=== PATIENT | female | born 1945 | race Caucasian/White ===

== ENCOUNTER 2022-06-18 16:38 | Emergency (ER) | payer MEDICARE, OTHER, SELFPAY ==
[2022-06-18 16:49] VITALS: BMI 36.0
--- NOTE | 2022-06-18 16:55 | XRR_ITS ---
PROCEDURE INFORMATION: Exam: XR Right Shoulder Exam date and time: 06/18/2022 5:10 PM Age: 76 years old Clinical indication: Pain; Shoulder; Right; Additional info: Fall today TECHNIQUE: Imaging protocol: Radiologic exam of the right shoulder. Views: 2 or more views. COMPARISON: No relevant prior studies available. FINDINGS: Bones/joints: Mildly complex or comminuted fracture seen involving the humeral head-neck of the right shoulder, with component of impaction. Mild deformity at the fracture site without significant displacement or angulation. No dislocation is seen in the shoulder joint. Adjacent osseous structures show no significant abnormality. Acromioclavicular joint appears maintained. Soft tissues: Unremarkable. XR/XR shoulder RT min 2V* [id number] IMPRESSION: Fracture of the humeral head-neck of the right shoulder, as noted above.
--- NOTE | 2022-06-18 17:24 | W.ED.EXTPRO ---
HPI - Extremity Problem General: Chief complaint: Extremity Injury, Upper Stated complaint: abd pain Time Seen by Provider: 06/18/22 17:24 History of Present Illness: 76-year-old female comes in today for complaints of injury to the right upper arm. Patient reports that she was cleaning her windows, bent over and was washing the lower part of the window and when she stood up straight she became dizzy and fell to the right side catching herself. Patient reports pain to the right upper arm. Patient is in a sling. Patient was brought in by EMS and had been given fentanyl in route. Patient is alert and oriented x3. Patient denies any other complaints. Patient appears nontoxic. Patient appears in no pain at rest. Associated symptoms: Deny chest pain or fever(s) Review of Systems Const: Denies: fever(s) Card: Denies: chest pain Resp: Denies: dyspnea GI: Denies: abdominal pain : Denies: difficulty voiding Musc: Reports: extremity pain Skin/Breast: Denies: new lesions Neuro: Denies: headache(s) Physical Exam Const: COMMON NORMALS: patient oriented x3 and alert HENMT: COMMON NORMALS: atraumatic HEAD & SCALP: atraumatic MOUTH: Normal oral and palatal mucosa present Neck/C-Spine: COMMON NORMALS: full ROM CERVICAL SPINE: No Cervical spine tenderness Chest: COMMONS NORMALS: normal palpation of entire chest wall Resp: COMMON NORMALS: normal respiratory effort and clear to auscultation bilaterally AUSCULTATION: clear to auscultation bilaterally Cardio: COMMON NORMALS: regular rate and regular rhythm RATE: regular rate RHYTHM: regular rhythm GI: COMMON NORMALS: Soft to palpation and non-tender PALPATION: Yes Soft to palpation Back/Pelvis: THORACIC SPINE/UPPER BACK: No thoracic spinal tenderness LUMBAR SPINE/LOWER BACK: No lumbar spinal tenderness Extremity: RIGHT UPPER EXTREMITY: Yes upper arm (Right upper arm tenderness with mild swelling. +Distal pulses and sensation) Neuro: COMMON NORMALS: patient oriented x3 SENSORIUM/ORIENTATION: Yes alert Skin: COMMON NORMALS: turgor normal GENERAL SKIN EXAM: turgor normal MDM - Extremity (Nontraumatic) Medical Decision Making 76-year-old female comes in today for complaints of injury to the right upper arm. Patient had stood up from being bent over cleaning her windows and lost her balance causing her to fall onto her right side. On exam patient has tenderness to the proximal right upper arm. Patient is in a sling. No rib pain or abdominal pain is noted. No pain is noted along the cervical, thoracic, and lumbar spine. Patient moves all extremities well except for the right arm. Distal pulses and sensation are intact to the right arm. Differential diagnosis includes dislocation, fracture, contusion. X-ray notes a proximal humeral fracture. Patient was put in a shoulder immobilizer and will be referred to orthopedic surgeon for further evaluation and treatment. Patient reported understanding and agreed to plan. Case management was requested to assist with follow-up appointment. Patient was written for as 12 tablets of hydrocodone for severe pain. Lab Data Radiology Impressions Shoulder X-Ray 06/18/22 16:55 IMPRESSION: Fracture of the humeral head-neck of the right shoulder, as noted above. Discharge Plan Discharge Patient Disposition: Home Clinical Impression: Fracture of humerus Qualifiers: Encounter type: initial encounter Humerus Location: proximal Fracture type: closed Fracture alignment: displaced Laterality: right Condition: Stable Prescriptions: New hydrocodone-acetaminophen 5-325 mg tablet 1 tab PO Q6H PRN (Reason: pain (scale score 7-10)) Qty: 12 0RF Discharge Orders: Discharge ED (Routine); Ordered 06/18/22 Ordered By: Aniket Sterling Referrals: Chaz Nolen, [Primary Care Provider] - Discharge Diet: Usual diet Discharge Activity: Increase activity as tolerated Patient Instructions: Arm Fracture in Adults (DC), Opioid Safety Activity Restrictions/Additional Instructions: Home and rest. Splint arm for comfort. Ice or heat for further pain control. Case management will contact you for follow-up with orthopedic surgeon. Follow-up with primary care as needed. Return to ER for new concerns or worsening symptoms such as uncontrolled pain, and high fever. Coding Level of Care Code ED Manager Of [employer] for Karli Ferreira
[2022-06-18] MEDS: HYDROcodone-acetaminophen 5-325 mg Tablet 2 TAB PO (17:56)
--- NOTE | 2022-06-19 08:51 | DCPLANNER ---
Addendum entered by Marlen Cardoso 06/26/22 07:51: Patient had a follow up appointment scheduled with ortho - patient did attend appointment. Original Note: manager revenue had message to schedule a follow up appointment for patient with ortho. manager revenue sent patients information to the front office staff at ortho. Patients information will be printed and reviewed. clinic will call patient with appointment information.
== END 2022-06-18 18:09 | disposition home or self-care (01) ==
PROVIDERS: Emergency Provider Nurse Practitioner Family; PCP Electrodiagnostic Medicine
DX: M79.621 Pain in right upper arm (principal); S42.291A Other displaced fracture of upper end of right humerus, initial encounter for closed fracture; W18.49XA Other slipping, tripping and stumbling without falling, initial encounter
CPT/HCPCS: 29240; 73030; 99283

== ENCOUNTER → 2022-06-25 10:34 | Outpatient (BNVA) | payer MEDICARE, OTHER, SELFPAY | PROVIDERS: PCP Electrodiagnostic Medicine; Visit Provider Orthopaedic Surgery | DX: S42.201A Unspecified fracture of upper end of right humerus, initial encounter for closed fracture (principal); W19.XXXA Unspecified fall, initial encounter | CPT/HCPCS: 23600; 73030 ==

== ENCOUNTER → 2022-07-23 10:42 | Outpatient (BNVA) | payer MEDICARE, OTHER, SELFPAY | PROVIDERS: PCP Electrodiagnostic Medicine; Visit Provider Orthopaedic Surgery | DX: S42.201A Unspecified fracture of upper end of right humerus, initial encounter for closed fracture (principal); X58.XXXA Exposure to other specified factors, initial encounter | CPT/HCPCS: 73030; 99024 ==

== ENCOUNTER → 2022-08-20 10:11 | Outpatient (BNVA) | payer MEDICARE, OTHER, SELFPAY | PROVIDERS: PCP Electrodiagnostic Medicine; Visit Provider Orthopaedic Surgery | DX: S42.201A Unspecified fracture of upper end of right humerus, initial encounter for closed fracture (principal); X58.XXXA Exposure to other specified factors, initial encounter | CPT/HCPCS: 73030; 99024 ==

== ENCOUNTER → 2022-09-24 10:03 | Outpatient (BNVA) | payer MEDICARE, OTHER, SELFPAY | PROVIDERS: PCP Electrodiagnostic Medicine; Visit Provider Orthopaedic Surgery | DX: S42.294D Other nondisplaced fracture of upper end of right humerus, subsequent encounter for fracture with routine healing (principal); X58.XXXD Exposure to other specified factors, subsequent encounter | CPT/HCPCS: 73030; 99024 ==

== ENCOUNTER 2023-03-23 08:19 | Outpatient (CLI) | payer MEDICARE, OTHER, SELFPAY ==
--- NOTE | 2023-03-23 08:24 | XRR_ITS ---
PROCEDURE INFORMATION: Exam: XR Chest Exam date and time: 03/23/2023 8:27 AM Age: 77 years old Clinical indication: Cough TECHNIQUE: Imaging protocol: Radiologic exam of the chest. Views: 2 views. COMPARISON: CR XR shoulder RT min 2V* [id number] 09/24/2022 10:12 AM FINDINGS: Lungs: Calcific sequela of old granulomatous disease, to include bilateral calcified granulomata. No consolidation. Mild linear atelectasis versus scarring at the left lung base. Pleural spaces: Unremarkable. No pleural effusion. No pneumothorax. Heart/Mediastinum: Unremarkable. No cardiomegaly. Vasculature: Aortic atherosclerotic calcification. Bones/joints: Known proximal right humerus fracture deformity. Thoracolumbar spine levoconvex curvature. Degenerative changes along the spine. Intraperitoneal space: Right upper abdomen surgical clips. XR/XR chest 2V* [id number] IMPRESSION: No acute findings.
== END 2023-03-23 08:20 | disposition home or self-care (01) ==
LOC: RAD 08:20
PROVIDERS: PCP Electrodiagnostic Medicine; Visit Provider Family Medicine
DX: R05.9 Cough, unspecified (principal)
CPT/HCPCS: 71046

== ENCOUNTER 2023-10-08 10:50 | Outpatient (CLI) | payer MEDICARE, OTHER, SELFPAY ==
--- NOTE | 2023-10-08 10:58 | MR_ITS ---
WS: [id number] MRI HEAD WITH CONTRAST TECHNIQUE: Sagittal T1, T2 axial, T2 axial FLAIR, axial susceptibility weighted imaging, axial diffus ion weighted images, and coronal T2 images were obtained. Pre and post-T1 axial and post T1 coronal i mages. ADC and FSPGR images. CLINICAL INFORMATION: headache, weakness COMPARISON: None. FINDINGS: No evidence of restricted diffusion to suggest acute ischemia. Moderate small vessel changes with mil d parenchymal volume loss. Small vessel changes in the wilma. A few tiny chronic lacunar infarcts in t he LEFT cerebellum. Normal vascular flow voids at the skull base. No extra-axial fluid collections. M ild mucosal thickening of the paranasal sinuses. Mild mucosal thickening in the mastoid air cells. No rmal posterior nasopharynx. Small amount of serpiginous hemosiderin in the RIGHT parasagittal occipit al lobe likely incidental venous angioma. Normal optic chiasm and pituitary infundibulum. Temporal lobes and hippocampal formations are normal in appearance. No abnormal gadolinium enhancement. Normal dural venous sinuses. MR/MR head wo/w con [id number] IMPRESSION: 1. No evidence of restricted diffusion to suggest acute ischemia 2. Moderate small vessel changes. Mild parenchymal volume loss. 3. Few tiny chronic lacunar infarcts in the LEFT cerebellum. 4. No abnormal gadolinium enhancement. 5. Prominent disc osteophyte complex at C3-C4 with indentation of the cervical cord with at least mild central canal stenosis. This could be further evaluate d with cervical spine MRI. 6. No other acute findings.
[2023-10-08] MEDS: gadobenate dimeglumine 20 mL vial IV (11:54)
== END 2023-10-08 10:51 | disposition home or self-care (01) ==
PROVIDERS: PCP Electrodiagnostic Medicine; Visit Provider Family Medicine
DX: R53.1 Weakness (principal); R51.9 Headache, unspecified; R42 Dizziness and giddiness; R20.9 Unspecified disturbances of skin sensation; M25.78 Osteophyte, vertebrae
CPT/HCPCS: 70553; A9577

== ENCOUNTER 2023-11-04 12:15 | Outpatient (CLI) | payer MEDICARE, OTHER, SELFPAY ==
--- NOTE | 2023-11-04 12:25 | MR_ITS ---
WS: [id number] MRI CERVICAL SPINE NONCONTRAST HISTORY: NECK PAIN COMPARISON: None available. Technique: Multiplanar, multisequence noncontrast imaging of the cervical spine. C3 anterolisthesis by 4 mm. Disc spaces are well narrowed and desiccated with bulging disc and osteop hytes. Visualized posterior fossa is unremarkable. Craniocervical junction, C1 and C2 relationship, odontoid process and soft tissues are normal. C2-C3: Bilateral paracentral disc protrusions. Mild facet arthritis and mild RIGHT foraminal stenosis . C3-C4: Osteophytic ridging, annular disc bulging and facet arthritis. Shallow central disc protrusion . Severe central with bilateral foraminal stenosis. Early changes of myelomalacia are suspected in th e cervical cord at this level. C4-C5: Diffuse annular disc bulging with osteophytic ridging. Central disc protrusion. Moderate to se neymar central and LEFT foraminal stenosis. Mild RIGHT foraminal stenosis. C5-C6: Osteophytic ridging, disc bulging, central disc protrusion with facet arthritis. Larger disc o steophyte in the LEFT foramen. Moderate central with severe LEFT foraminal stenosis. C6-C7: Diffuse annular disc bulging with osteophytic ridging. LEFT paracentral disc protrusion. Mild central and LEFT foraminal stenosis. C7-T1: Mild osteophytic ridging and disc bulging. Paraspinal soft tissue are normal. MR/MR cervical spin wo con* [id number] IMPRESSION: 1. Multiple multilevel cervical and foraminal stenoses with advanced spondylos is. Stenoses due to combination of disc disease, osteophytosis and facet diseas e. 2. C3 anterolisthesis by 4 mm. 3. C2-3: Bilateral paracentral disc protrusions with mild RIGHT foraminal sten osis. 4. C3-4: Severe central with bilateral foraminal stenosis and early changes of the cervical cord myelomalacia. 5. C4-5: Moderate to severe central and LEFT foraminal stenosis. 6. C5-6: Moderate central with severe LEFT foraminal stenosis. 7. C6-7: Mild central and LEFT foraminal stenosis. LEFT paracentral disc protr usion.
== END 2023-11-04 12:16 | disposition home or self-care (01) ==
PROVIDERS: PCP Electrodiagnostic Medicine; Visit Provider Family Medicine
DX: M48.02 Spinal stenosis, cervical region (principal); M25.78 Osteophyte, vertebrae; M50.20 Other cervical disc displacement, unspecified cervical region; M99.61 Osseous and subluxation stenosis of intervertebral foramina of cervical region; M50.30 Other cervical disc degeneration, unspecified cervical region; M50.321 Other cervical disc degeneration at C4-C5 level; M50.322 Other cervical disc degeneration at C5-C6 level; M50.223 Other cervical disc displacement at C6-C7 level
CPT/HCPCS: 72141

== ENCOUNTER 2024-07-15 14:18 | Outpatient (CLI) | payer MEDICARE, OTHER, SELFPAY ==
--- NOTE | 2024-07-15 14:21 | MR_ITS ---
WS: [id number] MRI CERVICAL SPINE NONCONTRAST HISTORY: CERVICAL SPINAL STENOSIS COMPARISON: 11/04/2023 Technique: Multiplanar, multisequence noncontrast imaging of the cervical spine. Since the prior examination anterior cervical fusion is now present at C3-4. Degenerative disc space narrowing at C3-4. C3 anterolisthesis by 3.6 mm. Mild cord myelomalacia at the C3-4 level is new. Disc spaces throughout the cervical spine are narrowed with endplate osteophytosis. Craniocervical junction, C1 and C2 relationship, odontoid process and soft tissues are normal. C2-C3: Osteophytic ridging with annular disc bulging. Mild central and bilateral foraminal stenosis. C3-C4: Diffuse osteophytic ridging. Advanced bilateral facet joint arthritis. Moderate to severe central and bilateral foraminal stenosis. C4-C5: Diffuse osteophytic ridging with disc bulging and facet arthritis. Moderate to severe central with mild LEFT foraminal stenosis. C5-C6: Marked osteophytic ridging and annular disc bulging asymmetric to the LEFT. Central disc protrusion. Moderate central with severe LEFT and mild RIGHT foraminal stenosis. Facet arthritis. C6-C7: Diffuse osteophytic ridging. Annular disc bulging. Moderate central with mild bilateral foraminal stenosis. C7-T1: No stenosis. Paraspinal soft tissue are normal. Mild cerebellar atrophy. MR/MR cervical spin wo con* [id number] IMPRESSION: 1. Since the prior examination patient has undergone an anterior cervical fusi on at C3-4. 2. Advanced degenerative disc disease at C3-4 with C3 anterolisthesis by 3.6 m m. 3. 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 4. C3-4: Moderate to severe central with bilateral foraminal stenosis. 5. C4-5: Moderate to severe central with mild LEFT foraminal stenosis. 6. C5-6: Moderate central with severe LEFT and mild foraminal stenosis. 7. C6-7 moderate central with mild bilateral foraminal stenosis.
== END 2024-07-15 14:19 | disposition home or self-care (01) ==
PROVIDERS: PCP Electrodiagnostic Medicine; Visit Provider Physician Assistant Surgical
DX: M48.02 Spinal stenosis, cervical region (principal); Z98.890 Other specified postprocedural states; M50.31 Other cervical disc degeneration, high cervical region; M43.12 Spondylolisthesis, cervical region; G95.89 Other specified diseases of spinal cord; M47.892 Other spondylosis, cervical region; M50.321 Other cervical disc degeneration at C4-C5 level; M50.322 Other cervical disc degeneration at C5-C6 level; M50.222 Other cervical disc displacement at C5-C6 level; M50.323 Other cervical disc degeneration at C6-C7 level; G31.89 Other specified degenerative diseases of nervous system
CPT/HCPCS: 72141